=== PATIENT | male | born 1950 | race Caucasian/White ===

== ENCOUNTER 2017-07-01 16:11 | Emergency (ER) | payer OTHER, MEDICARE ==
[2017-07-01] MEDS ORDERED: Triamcinolone Acetonide 40 MG/ML 1 ML MDV IM ONE (16:44)
[2017-07-01] MEDS ORDERED: predniSONE 20 MG Tab PO ONE (16:46)
[2017-07-01 17:05] VITALS: BP 134/69
--- NOTE | 2017-07-04 08:40 | ER ---
DATE SEEN: 07/01/2017 CHIEF COMPLAINT: Swelling of the right cheek. HISTORY OF PRESENT ILLNESS: This is a 67-year-old male, who was bitten by a wasp at about 1100 hours. Complains of swelling around the cheek that is mildly painful, but increasing in size. He took 2 tablets of Benadryl at home. No noticeable improvement. He complains of no dysphagia, difficulty breathing, or chest pain. PAST MEDICAL HISTORY: Hypertension and hypothyroidism. ALLERGIES: No known allergies. PHYSICAL EXAMINATION: VITAL SIGNS: He has a normal blood pressure, temperature is 98.5, and pulse is 72. HEAD: Normocephalic. There is swelling of the right side of the face, warm, slightly tender. EYES: Pupils are equal and react to light. NECK: Supple. CHEST: Clear. CARDIOVASCULAR: Normal. IMPRESSION: Bee sting with local reaction. PLAN: A 80 mg of Kenalog IM and then to continue Benadryl p.r.n. and prednisone 20 mg b.i.d. for 5 days. Time seen was 1630 hours. /[id number] ITZEL/NIKKO
== END 2017-07-01 17:00 | disposition home or self-care (01) ==
LOC: FB.ED 16:11
DX: T63.441A Toxic effect of venom of bees, accidental (unintentional), initial encounter (principal); I10 Essential (primary) hypertension; E03.9 Hypothyroidism, unspecified
CPT/HCPCS: 96372; 99281; A9270; J3301